=== PATIENT | female | born 1990 | race Two or more races ===

== ENCOUNTER 2024-06-09 19:08 | Emergency (ER) | payer BC ==
[~2024-06-09] VITALS: Ht 162.6 cm; Wt 61.2 kg
[2024-06-09] MEDS ORDERED: ALDACTONE50 MG (19:29)
[2024-06-09] MEDS ORDERED: FAMOTIDINE/PF 20 MG/2 ML VIAL ONE (19:57)
[2024-06-09] MEDS ORDERED: 0.9 % SODIUM CHLORIDE 1,000 ML IV ONE (20:00)
[2024-06-09] MEDS ORDERED: FAMOtidine 10 MG/ML (4ML VIAL) IV ONE (20:00)
[2024-06-09 20:30] LABS: PH,URINE 5.5 (5.0-8.0); URINE APPEARANCE Clear; URINE BILIRRUBIN Negative (NEGATIVE); URINE BLOOD Negative; URINE COLOR Yellow; URINE GLUCOSE Negative (NEGATIVE); URINE KETONE 15 (NEGATIVE); URINE LEUKOCYTE Negative; URINE NITRATE Negative; URINE PROTEIN Negative (NEGATIVE); URINE UROBILINOGEN 0.2 E.U./dl
[2024-06-09 20:34] LABS: URINE BACTERIA 1201.8 uL (0.0-1933); URINE RBC 2.2 uL (0.0-20.8); URINE WBC 15.6 uL (0.0-23.2)
[2024-06-09 20:36] LABS: HEMATOCRIT 42.3 % (36.0-45.00); HEMOGLOBIN 14.8 g/dL (12.0-15.00); MEAN CELL VOLUME 86.7 fL (80.00-100.00); MEAN CORPUSCULAR HEMOGLOBIN 30.4 pg (27.00-32.0); MEAN CORPUSCULAR HGB CONC 35.1 g/dl (32.0-36.0); PLATELET COUNT 220 K/uL (150-450); RED BLOOD COUNT 4.87 M/uL (4.00-6.00); RED CELL DISTRIBUTION WIDTH 12.5 % (11.5-14.5)
[2024-06-09 21:15] LABS: ALBUMIN 4.2 gm/dL (3.4-5.0); ALKALINE PHOSPHATASE 67 U/L (50-136); ALT/SGPT 24 U/L (12-78); ANION GAP 8 (10.0-20.0); AST/SGOT 19 U/L (15-37); BILIRUBIN TOTAL 0.35 mg/dL (0.3-1.2); BLOOD UREA NITROGEN 14 mg/dL (7-18); BUN CREA RATIO 17 (7.0-25.0); CALCIUM 9.3 mg/dL (8.5-10.1); CARBON DIOXIDE 29 mEq/L (21-32); CHLORIDE 105 mmol/L (98-107); CREATININE SERUM 0.84 mg/dL (0.55-1.02); GFR 77.16; GLOBULINA 3.9 G/DL (2.4-3.5); GLUCOSE FASTING 100 mg/dL (65-100); OSMOLALITY SERUM 276 MOSM/KG (275-295); PHOSPHOKINASE CREATININE 87 U/L (26-192); POTASSIUM 4.04 mEq/L (3.5-5.1); SODIUM 138 mmol/L (136-145); TOTAL PROTEIN 8.1 gm/dL (6.4-8.2)
[2024-06-09 21:37] LABS: CKMB < 1.0 NG/ML (0.5-3.6); HCG QUANTITATIVE < 1 mUI/mL (1-3)
[2024-06-10] MEDS ORDERED: MECLIZINE HCL 25 MG TABLET PO ONE ×2 (00:30)
== END 2024-06-10 00:48 | disposition home or self-care (01) ==
LOC: ER 19:09
PROVIDERS: General Practice
DX: R42 Dizziness and giddiness (principal); Z88.0 Allergy status to penicillin
CPT/HCPCS: 36415; 70460; Q9965

== ENCOUNTER → 2025-08-04 | Emergency (ER) | payer BC ==
[~2025-08-04] VITALS: Ht 160 cm; Wt 54.4 kg
[~2025-08-04] MED LIST: ALDACTONE50 MG; ENOXAPARIN SODIUM 60 MG/0.6 ML SYRINGE SUBCUTANEO STA
[2025-08-04 23:37] VITALS: BP 106/68; O2SAT 99
== END | disposition home or self-care (01) ==
LOC: ER 22:46
DX: M79.89 Other specified soft tissue disorders (principal); Z88.0 Allergy status to penicillin; Z88.8 Allergy status to other drugs, medicaments and biological substances

== ENCOUNTER 2025-08-05 11:49 | Emergency (ER) | payer BC ==
[~2025-08-05] VITALS: Ht 160 cm; Wt 54.4 kg
[~2025-08-05 11:49] MED LIST changes: -ENOXAPARIN SODIUM 60 MG/0.6 ML SYRINGE SUBCUTANEO STA
[2025-08-05] MEDS ORDERED: DEXAMETHASONE SODIUM PHOSPHATE 4 MG/ML VIAL IM ONE (13:15)
[2025-08-05] MEDS ORDERED: KETOROLAC TROMETHAMINE 30 MG VIAL IM ONE (13:15)
[2025-08-05 14:45] LABS: BASO % 0.6 % (0.1-1.2); EOS # 0.12 (0.04-0.54); EOS % 1.9 % (0.7-7.0); LYMPH # 2.31 (1.18-3.74); LYMPH % 36.7 % (19.3-53.1); MEAN PLATELET VOLUME 10.40 fl (9.4-12.4); MONO # 0.42 (0.24-0.82); MONO % 6.7 % (4.7-12.5); NEUT # 3.40 (1.56-6.13); NEUT % 53.9 % (34.0-71.1); RED CELL DISTRIBUTION WIDTH 12.7 % (11.6-14.4)
[2025-08-05 14:51] LABS: ERYTHROCYTE SEDIMENTATION RATE 2 mm/hr (0-20)
[2025-08-05 15:01] LABS: D DIMER 0.21 MG/L
[2025-08-05 15:43] LABS: ALT/SGPT 37 U/L (12-78); AST/SGOT 70 U/L (15-37); BILIRUBIN TOTAL 0.44 mg/dL (0.3-1.2); BUN CREA RATIO 12 (7.0-25.0); CREATININE SERUM 0.77 mg/dL (0.55-1.02); GFR 84.82; GLOBULINA 3.4 G/DL (2.4-3.5); GLUCOSE FASTING 85 mg/dL (65-100); OSMOLALITY SERUM 279 MOSM/KG (275-295)
[2025-08-05] MEDS ORDERED: ENOXAPARIN SODIUM 60 MG/0.6 ML SYRINGE SUBCUTANEO SCH (15:59)
[2025-08-05] MEDS ORDERED: MORPHINE SULFATE 4 MG/ML CARTRIDGE IV ONE (16:00)
[2025-08-05 16:15] LABS: INR 0.96
== END 2025-08-05 19:40 | disposition left against medical advice (07) ==
LOC: ER 11:50
DX: M79.605 Pain in left leg (principal); Z88.0 Allergy status to penicillin